=== PATIENT | female | born 1965 | race Hispanic/Latino ===

== ENCOUNTER 2022-01-11 17:51 | Emergency (ER) | payer OTHER ==
[~2022-01-11] VITALS: Ht 165.1 cm; Wt 72.6 kg
[2022-01-11 18:44] LABS: BASOPHILS % (AUTO) 0.3 % (0.0-5.0); EOSINOPHILS % (AUTO) 0.4 % (0.0-8.0); HEMATOCRIT 45.5 % (36-48); LYMPHOCYTES % (AUTO) 12.8 % (21.0-51.0); MEAN CORPUSCULAR HEMOGLOBIN 29.3 pg (27.0-33.0); MEAN CORPUSCULAR HGB CONC 34.9 g/dL (32.0-36.0); MEAN CORPUSCULAR VOLUME 83.9 fL (79-99); MONOCYTES % (AUTO) 4.4 % (3.0-13.0); NEUTROPHILS % (AUTO) 81.7 % (40.0-77.0); PLATELET COUNT (AUTO) 292 K/uL (130-400); RED BLOOD CELL COUNT(AUTO) 5.42 MIL/uL (4.00-5.50); RED CELL DISTRIBUTION WIDTH 12.3 % (11.0-15.5); WHITE BLOOD COUNT (AUTO) 11.1 K/uL (4.8-10.8)
[2022-01-11 19:05] LABS: CREATININE 0.5 mg/dL (0.5-1.5); POTASSIUM 3.6 mmol/L (3.5-5.1); TOTAL PROTEIN, SERUM 8.4 g/dL (6.0-8.3)
[2022-01-11 19:22] LABS: APPEARANCE,URINE CLEAR (CLEAR); BILIRUBIN,URINE NEGATIVE (NEGATIVE); COLOR,URINE LIGHT-YELLOW (YELLOW); GLUCOSE, URINE (UA) >=1000 mg/dL (NEGATIVE); KETONES,URINE 10 mg/dL (NEGATIVE); LEUKOCYTE ESTERASE ,URINE 250 Leu/uL (NEGATIVE); NITRATE,URINE NEGATIVE (NEGATIVE); OCCULT BLOOD,URINE NEGATIVE (NEGATIVE); PROTEIN,URINE 70 mg/dL (NEGATIVE); UROBILINOGEN,URINE 0.2 mg/dL (0.2-1.0)
[2022-01-11 19:25] LABS: BACTERIA,URINE RARE /HPF (None Seen); MUCUS,URINE RARE LPF (None Seen); SQUAMOUS EPITHELIAL CELL,UR RARE /HPF (0-2)
[2022-01-11] MEDS ORDERED: HYDRALAZINE 20MG/ML VIAL IV ONE (19:30)
[2022-01-11] MEDS ORDERED: ACETAMINOPHEN 325 MG TAB PO ONE (19:30)
[2022-01-11] MEDS ORDERED: LORAZEPAM 1 MG TABLET PO ONE (20:30)
[2022-01-11] MEDS ORDERED: MECL-262 PO (21:36)
[2022-01-11 21:40] VITALS: BP 141/78
== END 2022-01-11 21:48 | disposition home or self-care (01) ==
LOC: EDH 17:51
DX: R42 Dizziness and giddiness (principal); I10 Essential (primary) hypertension; F32.A Depression, unspecified; E11.9 Type 2 diabetes mellitus without complications; Z98.890 Other specified postprocedural states
CPT/HCPCS: 99284; 96374; 84484; 80053; 85025; 87088; 81001; 36415; 93005; J0360

== ENCOUNTER 2022-07-31 10:30 | Emergency (ER) | payer BC, OTHER ==
[~2022-07-31] VITALS: Ht 160 cm; Wt 65.8 kg
[~2022-07-31 10:30] MED LIST: MECL-262 PO
[2022-07-31 10:56] LABS: BASOPHILS % (AUTO) 0.1 % (0.0-5.0); EOSINOPHILS % (AUTO) 1.2 % (0.0-8.0); HEMATOCRIT 40.8 % (36-48); LYMPHOCYTES % (AUTO) 20.3 % (21.0-51.0); MEAN CORPUSCULAR HEMOGLOBIN 29.2 pg (27.0-33.0); MEAN CORPUSCULAR HGB CONC 34.3 g/dL (32.0-36.0); MONOCYTES % (AUTO) 5.1 % (3.0-13.0); PLATELET COUNT (AUTO) 308 K/uL (130-400); RED CELL DISTRIBUTION WIDTH 12.1 % (11.0-15.5); WHITE BLOOD COUNT (AUTO) 7.8 K/uL (4.8-10.8)
[2022-07-31] MEDS ORDERED: INSULIN HUMULIN R 100 UNIT/ML 3ML SQ ONE (11:00)
[2022-07-31 11:09] LABS: CREATININE 0.5 mg/dL (0.5-1.5); POTASSIUM 3.7 mmol/L (3.5-5.1)
[2022-07-31 11:15] LABS: ALBUMIN 3.2 g/dL (3.5-5.0)
[2022-07-31 11:56] LABS: INR 0.93 (0.85-1.15); PROTHROMBIN TIME 10.1 SEC (9.6-11.6)
[2022-07-31 12:00] VITALS: RESP 15
[2022-07-31] MEDS ORDERED: ASPIRIN 325MG TAB PO ONE (12:30)
[2022-07-31] MEDS ORDERED: INSULIN HUMULIN R 100 UNIT/ML 3ML IV ONE (12:30)
[2022-07-31] MEDS ORDERED: IOHEXOL 350 MG/ML 100ML INFUS..BTL IV ONE (14:58)
[2022-07-31] MEDS ORDERED: GLUCAGON 1MG KIT 1 MG ML IM PRN (15:00)
[2022-07-31] MEDS ORDERED: DEXTROSE 50%-WATER 50 ML DISP.SYRIN IV PRN (15:00)
[2022-07-31] MEDS ORDERED: ACETAMINOPHEN 500 MG TABLET PO PRN (15:00)
[2022-07-31] MEDS ORDERED: ONDANSETRON 4MG INJ IVP PRN (15:00)
[2022-07-31 15:11] LABS: HEMOGLOBIN A1C 11.6 % (4.0-6.0)
[2022-07-31 15:21] LABS: MAGNESIUM 1.5 mg/dL (1.80-2.40); THYROID STIMULATING HORMONE 0.37 uIU/mL (0.36-3.74)
[2022-07-31] MEDS ORDERED: MAGNESIUM 2GM PREMIX 50ML 50 ML IV SCH (15:30)
[2022-07-31] MEDS: 0.9%NACL 1000ML 1,000 ML IV SCH ×2 (15:46→23:22)
[2022-07-31] MEDS ORDERED: INSULIN HUMULIN R 100 UNIT/ML 3ML SQ SCH (16:30)
[2022-07-31] MEDS ORDERED: FAMOTIDINE 20MG TAB PO SCH (21:00)
[2022-07-31] MEDS ORDERED: ATORVASTATIN 40 MG TABLET PO SCH (21:00)
[2022-08-01 01:54] VITALS: BP 169/89; PULSE 83
[2022-08-01] MEDS ORDERED: ASPIRIN 81MG CHEW TAB PO SCH (09:00)
== END 2022-08-01 02:18 | disposition short-term general hospital (02) ==
LOC: EDH 10:30
DX: G45.9 Transient cerebral ischemic attack, unspecified (principal); E11.9 Type 2 diabetes mellitus without complications; I10 Essential (primary) hypertension; Z79.899 Other long term (current) drug therapy
CPT/HCPCS: 99285; 70496; 70551; 96374; 71045; 80061; 83036; 83735; 84484; 85610; 85730; 82948 ×3; 36415; 70498; 93005; 70450; 80050; J1815; Q9967; 80053; 84443; 85025

== ENCOUNTER 2024-09-06 12:40 | Emergency (ER) | payer BC ==
[~2024-09-06] VITALS: Ht 167.6 cm; Wt 74.8 kg
[2024-09-06 12:58] LABS: IMMATURE GRANULOCYTE ABSOLUTE 0.04 K/uL (0-1); NUCLEATED RED BLOOD CELLS 0.0 % (0.0-0.19); PLATELET COUNT (AUTO) 372 K/uL (130-400); RED BLOOD CELL COUNT(AUTO) 4.98 MIL/uL (4.00-5.50); RED CELL DISTRIBUTION WIDTH 12.7 % (11.0-15.5); WHITE BLOOD COUNT (AUTO) 9.0 K/uL (4.8-10.8)
--- NOTE | 2024-09-06 13:02 | EKG ---
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
[2024-09-06 13:08] LABS: INR 0.98 (0.85-1.15)
[2024-09-06 13:12] LABS: CREATININE 0.7 mg/dL (0.5-1.0); GLOMERULAR FILTR. RATE CALC 100.0 mL/min (>90); GLUCOSE,RANDOM 355.0 mg/dL (70-105); SODIUM SERUM 138.0 mmol/L (136-145); UREA NITROGEN, BLOOD 13.0 mg/dL (7-18)
[2024-09-06 13:17] LABS: CREATINE KINASE, TOTAL 31.0 U/L (21-232); LDL DIRECT 177.0 mg/dL (0-99)
--- NOTE | 2024-09-06 13:48 | HMCIMG ---
EXAM: CR Chest, 1 View. CLINICAL HISTORY: left side weakness COMPARISON: None provided. FINDINGS: LUNGS: There is no mass, infiltrate, or acute pulmonary abnormality. PLEURAL SPACES: No pleural effusion or pneumothorax. MEDIASTINUM: The cardiomediastinal silhouette is within normal limits. BONES: No aggressive appearing osseous lesion seen. IMPRESSION: No acute cardiopulmonary pathology is evident. /[place]
[2024-09-06 14:00] LABS: APPEARANCE,URINE CLEAR (CLEAR); GLUCOSE, URINE (UA) >=1000 mg/dL (NEGATIVE); LEUKOCYTE ESTERASE ,URINE NEGATIVE Leu/uL (NEGATIVE); NITRATE,URINE NEGATIVE (NEGATIVE); OCCULT BLOOD,URINE NEGATIVE (NEGATIVE)
[2024-09-06 14:05] LABS: ADD UA MICROSCOPIC YES
--- NOTE | 2024-09-06 14:06 | HMCIMG ---
EXAM: CT Head Without IV contrast. CLINICAL HISTORY: left sided weakness TECHNIQUE: Axial computed tomography images of the head/brain without intravenous contrast. COMPARISON: Study dated 07/31/22. FINDINGS: BRAIN: Age-related cerebral atrophy in the form of prominence of sulco-gyral spaces and dilatation of bilateral lateral ventricles. Bilateral periventricular hypodensities suggest small vessel ischemic disease. No evidence of acute hemorrhage. No mass lesion. No CT evidence for acute territorial infarct. No midline shift or extra-axial collections. ORBITS: The orbits are unremarkable. SINUSES AND MASTOIDS: The paranasal sinuses and mastoid air cells are clear. BONES: No fracture. SOFT TISSUES: Unremarkable. IMPRESSION: 1. No acute intracranial findings. /[place]
[2024-09-06 14:10] LABS: SQUAMOUS EPITHELIAL CELL,UR RARE /HPF (0-2)
--- NOTE | 2024-09-06 14:32 | ERN ---
General Chief Complaint: Eye Problems Stated Complaint: LEFT EYE Time Seen by MD: 12:43 Source: patient History of Present Illness Initial Comments Patient is a 58-year-old female coming in complaining of left eye weakness and right facial numbness. Per patient and family members these symptoms began yesterday. Patient has a history of a CVA years ago. Allergies: Coded Allergies: No Known Drug Allergies (Unverified Allergy, Unknown, 02/05/19) Home Meds Active Scripts Meclizine HCl (Antivert) 25 Mg Tab.chew, 25 MG PO TID, #60 TAB Prov:MICHELLE CAMPA MD 01/11/22 Past Medical History Past Medical History: CVA, Diabetes-Type II, Heart Disease, Hypertension Past Surgical History: None Social History Social History: Negative, Lives with family ROS Dictation CONSTITUTIONAL: No chills, no fever, no weakness, no diaphoresis, no malaise. HEAD/FACE: No signs of trauma. EENT: No eye pain, no blurred vision, no tearing, no double vision, no ear pain, no ear discharge, no nose pain, no nasal congestion, no throat pain, no throat swelling, no mouth pain. RESPIRATORY: No cough, no orthopnea, no SOB, no stridor, no wheezing. CARDIOVASCULAR: No chest pain, no edema, no palpitations, no syncope. GASTROINTESTINAL/ABDOMINAL: No abdominal pain, no constipation, no diarrhea, no nausea, no vomiting. GENITOURINARY: No abnormal discharge, no dysuria, no frequent urination, no hematuria. No complaints of pain in the genitals. MUSCULOSKELETAL: No back pain, no gout, no joint pain, no joint swelling, no muscle pain, no muscle stiffness, no neck pain. INTEGUMENTARY: No change in color, no change in hair/nails, no dryness, no lesion, no lumps, no rash. NEUROLOGICAL/PSYCH: No anxiety, not depressed, no emotional problem, no heada xiomara, no numbness, no pre-existing deficit, no history of seizures, no tremors, no weakness. HEMATOLOGIC/LYMPHATIC: Not anemic, no history of blood clots, no apparent bleeding, no bruising, glands not swollen. All Systems Negative, Except as Noted. Physical Exam Physical Exam Dictation VITAL SIGNS: Reviewed. GENERAL APPEARANCE: Alert, oriented x3, no acute distress, obese. HEAD AND FACE: Non-traumatic. EYES: PERRL, pink conjunctivas, left eyelid weakness, anterior chamber clear. EARS: Pinnas intact and no signs of trauma or erythema. Ear canals clear and no discharge. TMs no erythema. NOSE: No discharge, no bleeding. OROPHARYNX: Mouth normal, teeth no caries, tongue pink. Pharynx clear, no erythema. Tonsils no exudates, no abscesses noted. Mucous membrane moist. NECK: Supple, non-tender, no thyromegaly, no masses, no JVD, no bruits. BREAST: Deferred. CHEST: No tenderness, no crepitus, no paradoxical movement, no retractions. LUNGS: Clear, well-ventilated, symmetric, no rales, no wheezing, no rhonchi, no stridor, good breath sounds bilaterally. HEART: Regular rate, regular rhythm, no murmur, no gallops. VASCULAR: No peripheral edema. ABDOMEN: Soft, positive bowel sounds, nondistended, no guarding, nontender, no rebound, no masses no hepatomegaly, no splenomegaly, no Babcock's sign, no hernias. RECTAL: Deferred. GENITAL: Deferred. NEUROLOGICAL: Normal speech, gross motor function intact, gross sensory function intact. MUSCULOSKELETAL: Neck nontender, full range of motion, back nontender, full range of motion. EXTREMITIES: Nontender, full range of motion. SKIN: Color pink, dry, no turgor, no rash, no lacerations, no abrasions, no contusions. LYMPHATICS: Deferred. Results Laboratory and Microbiology Lab and Micro Result Laboratory Tests Test 09/06/24 12:54 09/06/24 13:41 White Blood Count 9.0 K/uL (4.8-10.8) Red Blood Count 4.98 MIL/uL (4.00-5.50) Hemoglobin 14.6 g/dL (12.0-16.0) Hematocrit 42.7 % (36-48) Mean Corpuscular Volume 85.7 fL (79-99) Mean Corpuscular Hemoglobin 29.3 pg (27.0-33.0) Mean Corpuscular Hemoglobin Concent 34.2 g/dL (32.0-36.0) Red Cell Distribution Width 12.7 % (11.0-15.5) Platelet Count 372 K/uL (130-400) Mean Platelet Volume 10.0 fL (7.5-10.5) Immature Granulocyte % (Auto) 0.4 % (0-1) Neutrophils (%) (Auto) 75.4 % (40.0-77.0) Lymphocytes (%) (Auto) 18.5 % (21.0-51.0) L Monocytes (%) (Auto) 4.6 % (3.0-13.0) Eosinophils (%) (Auto) 0.8 % (0.0-8.0) Basophils (%) (Auto) 0.3 % (0.0-5.0) Neutrophils # (Auto) 6.8 K/uL (1.8-7.7) Lymphocytes # (Auto) 1.7 K/uL (1.0-4.8) Monocytes # (Auto) 0.4 K/uL (0.1-1.0) Eosinophils # (Auto) 0.07 K/uL (0.00-0.70) Basophils # (Auto) 0.03 K/uL (0.00-0.20) Absolute Immature Granulocyte (auto 0.04 K/uL (0-1) Nucleated Red Blood Cells 0.0 % (0.0-0.19) Prothrombin Time 10.4 SEC (9.6-11.6) Prothromb Time International Ratio 0.98 (0.85-1.15) Activated Partial Thromboplast Time 27.6 SEC (26.3-35.5) Sodium Level 138 mmol/L (136-145) Potassium Level 4.1 mmol/L (3.5-5.1) Chloride Level 100 mmol/L (101-111) L Carbon Dioxide Level 34 mmol/L (21-32) H Blood Urea Nitrogen 13 mg/dL (7-18) Creatinine 0.7 mg/dL (0.5-1.0) Glomerular Filtration Rate Calc 100 mL/min (>90) Random Glucose 355 mg/dL (70-105) H Total Calcium 9.1 mg/dL (8.5-10.1) Total Creatine Kinase 31 U/L (21-232) # Troponin I High Sensitivity 10 ng/L (4-50) LDL Cholesterol 177 mg/dL (0-99) H Urine Color COLORLESS (YELLOW) Urine Appearance CLEAR (CLEAR) Urine pH 7.0 (5.0-8.0) Urine Specific [place] 1.018 (1.001-1.031) Urine Protein 50 mg/dL (NEGATIVE) H Urine Glucose (UA) >=1000 mg/dL (NEGATIVE) H Urine Ketones NEGATIVE mg/dL (NEGATIVE) Urine Occult Blood NEGATIVE (NEGATIVE) Urine Nitrate NEGATIVE (NEGATIVE) Urine Bilirubin NEGATIVE mg/dL (NEGATIVE) Urine Urobilinogen 0.2 mg/dL (0.2-1.0) Urine Leukocyte Esterase NEGATIVE Brit[place]/uL Urine RBC 0-1 /HPF (0-1) Urine WBC 0-1 /HPF (0-1) Urine Squamous Epithelial Cells RARE /HPF (0-2) Urine Bacteria None Seen /HPF (None Seen) Labs Reviewed?: Yes EKG/XRAY/US/CT/MRI EKG Comment 09/06/2024 time 12:58 p.m. Ventricular rate 90 Sinus rhythm [place] [address] wave elevation or depression X-RAY Comment [address] [address] IMAGING REPORT Signed PATIENT: CASANDRA LORA MR#: [id number] : 1965 SEX: F AGE: 58 LOCATION: [facility] ORDER [id number] STATUS: [facility] REPORT#: [id number] SERVICE 1243 REASON: left side weakness ORDERING PHYSICIAN: NATHANIEL MARTINEZ MD PROCEDURE: CXR1VW - CHEST 1VW EXAM: CR Chest, 1 View. CLINICAL HISTORY: left side weakness COMPARISON: None provided. FINDINGS: LUNGS: There is no mass, infiltrate, or acute pulmonary abnormality. PLEURAL SPACES: No pleural effusion or pneumothorax. MEDIASTINUM: The cardiomediastinal silhouette is within normal limits. BONES: No aggressive appearing osseous lesion seen. IMPRESSION: No acute cardiopulmonary pathology is evident. /[place] DICTATED BY: JOSEFINA HARPER Jr., MD DATE: 09/06/241446 ELECTRONICALLY SIGNED BY: JOSEFINA HARPER Jr., MD DATE: 09/06/241446 CT Scan Comment IMAGING REPORT Signed PATIENT: CASANDRA LORA MR#: [id number] : 1965 SEX: F AGE: 58 LOCATION: [facility] ORDER [id number] STATUS: REG ER REPORT#: [id number] SERVICE 1243 REASON: left sided weakness ORDERING PHYSICIAN: NATHANIEL MARTINEZ MD PROCEDURE: HEAD WO - CT HEAD/BRAIN W/O CONTRAST EXAM: CT Head Without IV contrast. CLINICAL HISTORY: left sided weakness TECHNIQUE: Axial computed tomography images of the head/brain without intravenous contrast. COMPARISON: Study dated 07/31/22. FINDINGS: BRAIN: Age-related cerebral atrophy in the form of prominence of sulco-gyral spaces and dilatation of bilateral lateral ventricles. Bilateral periventricular hypodensities suggest small vessel ischemic disease. No evidence of acute hemorrhage. No mass lesion. No CT evidence for acute territorial infarct. No midline shift or extra-axial collections. ORBITS: The orbits are unremarkable. SINUSES AND MASTOIDS: The paranasal sinuses and mastoid air cells are clear. BONES: No fracture. SOFT TISSUES: Unremarkable. IMPRESSION: 1. No acute intracranial findings. /[place] DICTATED BY: ESTER FRITZ MD DATE: 09/06/241504 ELECTRONICALLY SIGNED BY: ESTER FRITZ MD DATE: 09/06/24 150 [address] [id number] IMAGING REPORT Signed PATIENT: CASANDRA LORA MR#: [id number] : 1965 SEX: F AGE: 58 LOCATION: ED ORDER [id number] STATUS: REG ER REPORT#: [id number] SERVICE 143 REASON: facial weakness numbness ORDERING PHYSICIAN: NATHANIEL MARTINEZ MD PROCEDURE: CTA HEDNEC - CT ANGIO HEAD AND NECK EXAM: CTA Head and Neck with and without Intravenous Contrast. CLINICAL HISTORY: facial weakness numbness TECHNIQUE: Axial CTA images of the head and neck performed with and without intravenous contrast in the arterial phase. Coronal and sagittal reformatted images were generated and reviewed. 3-D reformatted images generated on an independent workstation were also reviewed. NASCET criteria were used in assessment of stenosis. CONTRAST: Contrast injected without incident. COMPARISON: Study dated 07/31/22. FINDINGS: VASCULATURE:NECK: COMMON CAROTID ARTERIES No significant stenosis. No dissection or occlusion. EXTERNAL CAROTID ARTERIES Patent. INTERNAL CAROTID ARTERIES Atherosclerotic wall calcification of the petrous segment of the right internal carotid artery without significant luminal compromise. Atherosclerotic wall calcification of the left carotid bulb and left origin of the internal carotid artery without significant luminal compromise. No stenosis by NASCET criteria. No dissection or occlusion. VERTEBRAL ARTERIES Mild irregular luminal narrowing of the V4 segment of the left vertebral artery. No significant stenosis. No dissection or occlusion. HEAD: ANTERIOR CEREBRAL ARTERIES No significant stenosis. No occlusion. No aneurysm. MIDDLE CEREBRAL ARTERIES No significant stenosis. No occlusion. No aneurysm. POSTERIOR CEREBRAL ARTERIES No significant stenosis. No occlusion. No aneurysm. BASILAR ARTERY No significant stenosis. No occlusion. No aneurysm. OTHER: SOFT TISSUES No acute finding. BONES No acute osseous abnormality. IMPRESSION: 1. No acute intracranial or cervical vascular findings. 2. Mild irregular luminal narrowing of the V4 segment of the left vertebral artery. /[place] DICTATED BY: ESTER FRITZ MD DATE: 09/06/241714 ELECTRONICALLY SIGNED BY: ESTER FRITZ MD DATE: 09/06/241714 [facility] MDM: Differential diagnosis: CVA, TIA, left-sided weakness, hyperglycemia, Rationale: Tests considered and ordered secondary to shared decision making include: labs, ECG and radiology Previous outside records reviewed: Old ER visits. Risk of complication and/or morbidity or mortality of patient management: None Medications-Per medication reconciliation Need for hospitalization: Patient does meet criteria for hospitalization. Need for emergency major/minor surgery: No There are no social concerns with this patient. Prescription drug management Prescriptions will include symptomatic care Patient's prior external medical records from other ER visits were reviewed by me as indicated. Prior testing and results from previous visits were reviewed. Prior tests were taken into account with medical decision making and resource utilization, independent historian/historians were used to obtain complete medic al history. I independently interpreted the test that were performed, results were reviewed by me and considered findings on radiology if ordered. Medical management and examination interpretation discussions were had by me with other qualified healthcare professionals as indicated for the patient's care. ED Course Orders Procedure Category Date Status Time Cbc With Differential LAB 09/06/24 Complete 12:43 Prothrombin Time With LAB 09/06/24 Complete INR 12:43 Partial LAB 09/06/24 Complete Thromboplastin Time 12:43 Ct Head/Brain W/O CT 09/06/24 Resulted Contrast 12:43 Chest 1vw RAD 09/06/24 Resulted 12:43 12 Lead Ekg Tracing- EKG 09/06/24 Complete Technical 12:43 Creatine Kinase, Total LAB 09/06/24 Complete 12:43 Ldl Direct LAB 09/06/24 Complete 12:43 Troponin I High LAB 09/06/24 Complete Sensitivity 12:43 Urinalysis Profile LAB 09/06/24 Complete 12:43 Bedside Glucose CPOE 09/06/24 Transmitted Fingerstick 12:43 Basic Metabolic Panel LAB 09/06/24 Complete 12:43 0.9%Nacl 1000ml (Ns PHA 09/06/24 Complete 1000ml) 14:30 Insulin Regular, PHA 09/06/24 Complete Human 3ml (Humulin R 14:30 Ct Angio Head And Neck CT 09/06/24 Resulted 14:34 Clonidine Hcl 0.2 Mg PHA 09/06/24 In Process Tablet (Catapres 0. 15:30 Clonidine Hcl 0.2 Mg PHA 09/06/24 Complete Tablet (Catapres 0. 15:04 Iohexol (Omnipaque) PHA 09/06/24 Complete 15:05 Current Medications Medications (Trade) Dose Ordered Sig/Tamera Route PRN Reason Start Time Stop Time Status Last Admin Dose Admin Clonidine HCl (CATApres 0.2 MG TAB) 0.2 mg ONCE PO 09/06/24 15:30 09/06/24 19:30 Clonidine HCl (CATApres 0.2 MG TAB) 0.2 mg STK-MED ONCE PO 09/06/24 15:04 09/06/24 15:05 DC 09/06/24 15:07 Insulin Human Regular (humuLIN R 100 UNIT/ML 3ML) 5 unit ONCE ONCE IV 09/06/24 14:30 09/06/24 14:31 DC 09/06/24 14:39 Iohexol (Omnipaque) 75 ml STK-MED ONCE IV 09/06/24 15:05 09/06/24 15:06 DC Sodium Chloride 1,000 ml @ 0 mls/hr ONCE ONCE IV 09/06/24 14:30 09/06/24 14:31 DC 09/06/24 14:39 Vital Signs Date Time Temp Pulse Resp B/P (MAP) Pulse Ox O2 Delivery O2 Flow Rate FiO2 09/06/24 16:23 98.2 69 18 152/72 98 Room Air* 0 21 09/06/24 15:07 87 201/87 09/06/24 14:58 87 20 201/87 100 Room Air* 0 21 09/06/24 13:40 83 18 161/88 99 Room Air* 0 09/06/24 12:45 98.1 91 18 127/100 100 Room Air* 0 21 09/06/24 12:42 98.1 91 18 127/100 100 Room Air 0 Critical Care Note Comments Critical Care Procedure Note Authorized and Performed by: me Total critical care time: Approximately 36 minutes Due to a high probability of clinically significant, life threatening deterioration, the patient required my highest level of preparedness to intervene emergently and I personally spent this critical care time directly and personally managing the patient. This critical care time included obtaining a history; examining the patient; pulse oximetry; ordering and review of studies; arranging urgent treatment with development of a management plan; evaluation of patient's response to treatment; frequent reassessment; and, discussions with other providers. This critical care time was performed to assess and manage the high probability of imminent, life-threatening deterioration that could result in multi-organ failure. It was exclusive of separately billable procedures and treating other patients and teaching time. Please see MDM section and the rest of the note for further information on patient assessment and treatment. DX & DISP Disposition: Transfer Decision to Admit Time: 17:56 Departure Impression: Primary Impression: TIA (transient ischemic attack) Condition: Stable Referrals: SELF,REFERRAL (PCP) NATHANIEL MARTINEZ MD Sep 06, 2024 14:32
[2024-09-06] MEDS: 0.9%NACL 1000ML 1,000 ML IV ONE (14:39)
[2024-09-06] MEDS ORDERED: IOHEXOL-350 75 ML VIAL IV ONE (15:05)
--- NOTE | 2024-09-06 15:28 | NUR ---
PASSED BEDSIDE SWALLOW TEST
--- NOTE | 2024-09-06 16:16 | HMCIMG ---
EXAM: CTA Head and Neck with and without Intravenous Contrast. CLINICAL HISTORY: facial weakness numbness TECHNIQUE: Axial CTA images of the head and neck performed with and without intravenous contrast in the arterial phase. Coronal and sagittal reformatted images were generated and reviewed. 3-D reformatted images generated on an independent workstation were also reviewed. NASCET criteria were used in assessment of stenosis. CONTRAST: Contrast injected without incident. COMPARISON: Study dated 07/31/22. FINDINGS: VASCULATURE:NECK: COMMON CAROTID ARTERIES No significant stenosis. No dissection or occlusion. EXTERNAL CAROTID ARTERIES Patent. INTERNAL CAROTID ARTERIES Atherosclerotic wall calcification of the petrous segment of the right internal carotid artery without significant luminal compromise. Atherosclerotic wall calcification of the left carotid bulb and left origin of the internal carotid artery without significant luminal compromise. No stenosis by NASCET criteria. No dissection or occlusion. VERTEBRAL ARTERIES Mild irregular luminal narrowing of the V4 segment of the left vertebral artery. No significant stenosis. No dissection or occlusion. HEAD: ANTERIOR CEREBRAL ARTERIES No significant stenosis. No occlusion. No aneurysm. MIDDLE CEREBRAL ARTERIES No significant stenosis. No occlusion. No aneurysm. POSTERIOR CEREBRAL ARTERIES No significant stenosis. No occlusion. No aneurysm. BASILAR ARTERY No significant stenosis. No occlusion. No aneurysm. OTHER: SOFT TISSUES No acute finding. BONES No acute osseous abnormality. IMPRESSION: 1. No acute intracranial or cervical vascular findings. 2. Mild irregular luminal narrowing of the V4 segment of the left vertebral artery. /[place]
--- NOTE | 2024-09-06 16:40 | NUR ---
TRANSFER REQUEST TO [facility] [place] BY DR MARTINEZ. ANNA KELLY
--- NOTE | 2024-09-06 16:50 | NUR ---
TRANSFER MET WITH PT AND SPOUSE INFORM OF TRANSFER PROCESS BOTH VERBALIZED UNDERSTANDING AND CONSENT SIGN FOR TRANSFER . ANNA KELLY
--- NOTE | 2024-09-06 17:14 | NUR ---
TRANSFER CALL PLACED TO [facility] [place] TRAN[facility] [phone] SPOKE WITH COLLEEN INFORMATION PROVIDED WILL CALL BACK. ANNA KELLY
--- NOTE | 2024-09-06 17:22 | BSKYNEURO ---
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 # Scores Time of exam and NIHSS (Central Time): 09/06/2024 17:08 Level of Consciousness 1a: [0] = Alert; keenly responsive LOC Questions 1b: [0] = Answers both questions correctly LOC Commands 1c: [0] = Performs both tasks correctly Best Gaze 2: [0] = Normal Visual 3: [0] = No visual loss Facial Palsy 4: [3] = Complete paralysis Motor Arm Left 5a: [0] = No drift Motor Arm Right 5b: [0] = No drift Motor Leg Left 6a: [0] = No drift Motor Leg Right 6b: [0] = No drift Limb Ataxia 7: [0] = Absent Sensory 8: [0] = Normal Best Language 9: [0] = No aphasia Dysarthria 10: [0] = Normal Extinction and Inattention 11: [0] = No abnormality NIHSS Total: 3 # Exam Cranial Nerves: - extra ocular movements intact Motor: - normal strength # Assessment Impression: - [place] Palsy # Plan Thrombolytic/Intervention: NOT IV Thrombolysis or IA Intervention candidate Thrombolytic/Intraarterial Exclusion: - IV thrombolytic and IA intervention considered but not recommended as this patient's symptoms are not clinically consistent with an assumed diagnosis of stroke Imaging: (urgency: STAT): - CT Head without contrast Medication: Prednisone 60mg Daily x 7 days Valacyclovir 1000mg TID x 7 days Other: - If patient has any neurological deterioration please call me back immediately - I have discussed my recommendations with the referring provider Additional Recommendations: eye patch for affected eye QHS to avoid corneal abrasions. # Logistics Attestation of consult completion: The patient is located at: [facility]. Facility staff participated in the visit. I performed this telemedicine visit from my offsite office utilizing interactive 2 way audio and visual telecommunication technology. Total time spent in telemedicine encounter: I spent 21 minutes reviewing clinical data and/or imaging, obtaining history, examining the patient, communicating with the onsite care team, and in preparation of this report. # Demographics First Name: NEETU Ovalle Last Name: GUIDO Facility: [facility] Electronically signed at 09/06/2024 17:17 (Central Time) by Jamaal Adamson MD Neuro Consult Order placed for: Yes RICH ADAMSON MD Sep 06, 2024 17:22
--- NOTE | 2024-09-06 17:56 | CONS ---
CONSULT NOTE: [facility] Note # Demographics Consult Type: General Neurology Patient Location: Emergency Room First Name: CASANDRA Last Name: GUIDO Date of : 1965 Age: 58 Gender: Female Facility: [facility] Time of Initial Page (Central Time): 09/06/2024 14:19 Time of Return Call (Central Time): 09/06/2024 14:19 # HPI History: 58yof with prev stroke (mild L sided residual weakness) who p/w L ptosis, R hemibody numbness. Last Known Normal: - I have collected independent history specific to time last normal or last known well. We have collaborated with the provider and at this time, we have the most current timeline with the information that is available. # Scores Time of exam and NIHSS (Central Time): 09/06/2024 14:28 Level of Consciousness 1a: [0] = Alert; keenly responsive LOC Questions 1b: [1] = Answers one correctly LOC Commands 1c: [0] = Performs both tasks correctly Best Gaze 2: [0] = Normal Visual 3: [0] = No visual loss Facial Palsy 4: [1] = Minor paralysis Motor Arm Left 5a: [0] = No drift Motor Arm Right 5b: [0] = No drift Motor Leg Left 6a: [0] = No drift Motor Leg Right 6b: [0] = No drift Limb Ataxia 7: [0] = Absent Sensory 8: [1] = Ditp-bw-vwnupxsv sensory loss Best Language 9: [0] = No aphasia Dysarthria 10: [0] = Normal Extinction and Inattention 11: [0] = No abnormality NIHSS Total: 3 # Data Head CT: - no bleed - per radiologist read # Plan Thrombolytic/Intervention: NOT IV Thrombolysis or IA Intervention candidate Thrombolytic Exclusion: > 4.5 hours Intraarterial Exclusion: - clinical exam not consistent with presence of large vessel occlusion (LVO), can reconsider if LVO found on vascular imaging Imaging: (urgency: STAT): - CT Angiogram Head and CT Angiogram Neck AND call back with results if abnormal Imaging: (urgency: routine): - MRI Brain without contrast Other: - If patient has any neurological deterioration please call me back immediately - would not pursue stroke work-up if MRI is negative # Logistics Attestation of consult completion: The patient is located at: [facility]. Facility staff participated in the visit. I performed this telemedicine visit from my offsite office utilizing interactive 2 way audio and visual telecommunication technology. Total time spent in telemedicine encounter: I spent 23 minutes reviewing clinical data and/or imaging, obtaining history, examining the patient, communicating with the onsite care team, and in preparation of this report. # Demographics First Name: CASANDRA Last Name: GUIDO Facility: [facility] BRANDON GRANT MD Sep 06, 2024 17:56
--- NOTE | 2024-09-06 18:05 | NUR ---
TRANSFER INTAKE NURSE CASANDRA CALL BACK WITH ACCEPTANCE UNDER DR RALF STERN TO ROOM [id number] AND PRIMARY NURSE TO CALL REPORT TO [phone] AND EMS WHEN READY. ANNA KELLY
[2024-09-06 19:37] VITALS: BP 176/79; PULSE 71; RESP 17; TEMP 97.5; O2SAT 100
--- NOTE | 2024-09-06 19:48 | NUR ---
REPORT GIVEN TO [facility] AT BEDSIDE, ALL QUESTIONS ANSWERED AT THIS TIME. NO SIGNS OF ACUTE DISTRESS NOTED, PER ER MD, PERMISIVE HTN 170s PERMITTED, DENIES PAIN, ALL BELONGINGS SENT WITH PATIENT AT TIME OF DEPARTURE.
== END 2024-09-06 19:51 | disposition short-term general hospital (02) ==
LOC: EDH 12:40
DX: G45.9 Transient cerebral ischemic attack, unspecified (principal); E11.9 Type 2 diabetes mellitus without complications; I11.9 Hypertensive heart disease without heart failure
CPT/HCPCS: 99291; 70496; 96374; 71045; 82550; 83721; 84484; 80048; 85025; 85610; 85730; 81001; 36415; 70498; 93005; 70450; J1815; J7030; Q9967

== ENCOUNTER 2024-11-03 17:21 | Emergency (ER) | payer BC ==
[~2024-11-03] VITALS: Ht 165.1 cm; Wt 72.6 kg
[2024-11-03 17:59] LABS: IMMATURE GRANULOCYTE ABSOLUTE 0.04 K/uL (0-1); NUCLEATED RED BLOOD CELLS 0.0 % (0.0-0.19); PLATELET COUNT (AUTO) 368 K/uL (130-400); RED BLOOD CELL COUNT(AUTO) 4.77 MIL/uL (4.00-5.50); RED CELL DISTRIBUTION WIDTH 12.6 % (11.0-15.5); WHITE BLOOD COUNT (AUTO) 12.4 K/uL (4.8-10.8)
[2024-11-03 18:05] LABS: CREATININE 0.6 mg/dL (0.5-1.0); GLOMERULAR FILTR. RATE CALC 104.0 mL/min (>90); GLUCOSE,RANDOM 162.0 mg/dL (70-105); SODIUM SERUM 134.0 mmol/L (136-145); UREA NITROGEN, BLOOD 12.0 mg/dL (7-18)
[2024-11-03 18:16] LABS: CREATINE KINASE, TOTAL 44.0 U/L (21-232)
--- NOTE | 2024-11-03 18:59 | ERN ---
ED Note History of Present Illness Stated Complaint: ELEVATED BP Chief Complaint: Hypertension Time Seen by MD: 17:39 Dictation: 58-YEAR-OLD FEMALE PRESENTS ER WITH AND . SOME PATIENT HAS MILD DEMENTIA SO HE WILL BE A HISTORIAN. STATES BLOOD PRESSURE NURSE CALLED HIM TODAY TOLD HIM PATIENT NEEDED TO COME THE ER TO GET EVALUATED BECAUSE BLOOD PRESSURE WAS 199/100. PATIENT IS ASYMPTOMATIC PATIENT DENIES ANY COMPLAINT Allergies: Coded Allergies: No Known Drug Allergies (Unverified Allergy, Unknown, 02/05/19) Home Meds Active Scripts Meclizine HCl (Antivert) 25 Mg Tab.chew, 25 MG PO TID, #60 TAB Prov:MICHELLE CAMPA MD 01/11/22 Past Medical History Past Medical History: CVA, Dementia, Diabetes-Type II, Heart Disease, Hypertension, Stroke Surgical History: None Social History: Negative, Lives with family Review of System Dictation CONSTITUTIONAL: NEGATIVE FOR FEVER,CHILLS, AND WEIGHT LOSS EYES: NEGATIVE FOR INJURY, PAIN,REDNESS, AND DISCHARGE ENT: NEGATIVE FOR INJURY,PAIN OR SWELLING CARDIOVASCULAR: NEGATIVE FOR CHEST PAIN, PALPITATIONS, AND EDEMA RESPIRATORY: NEGATIVE FOR SHORTNESS OF BREATH, COUGH, WHEEZING, AND PLEURITIC CHEST PAIN ABDOMEN/GI: NEGATIVE FOR ABDOMINAL PAIN, NAUSEA, VOMITING, DIARRHEA, AND CONSTIPATION BACK: NEGATIVE FOR INJURY AND PAIN : NEGATIVE FOR INJURY, BLEEDING AND DISCHARGE MS/EXTREMITY: NEGATIVE FOR INJURY AND DEFORMITY SKIN: NEGATIVE FOR RASH, AND DISCOLORATION NEURO: NEGATIVE FOR HEADACHE, WEAKNESS, NUMBNESS, TINGLING, AND SEIZURE PSYCH: NEGATIVE FOR SUICIDE IDEATION, HOMICIDAL IDEATION, AND HALLUCINATIONS ALLERGY/IMMUNOLOGY: NEGATIVE FOR HIVES, RASH, AND ALLERGIES ALL SYSTEMS NEGATIVE, EXCEPT NOTED ABOVE. Initial Vital Sign VS Vital Signs Date Time Temp Pulse Resp B/P (MAP) Pulse Ox O2 Delivery O2 Flow Rate FiO2 11/03/24 17:24 98.4 56 16 193/88 100 Room Air 0 11/03/24 19:20 21 Physical Exam Dictation GENERAL: AWAKE, ALERT, NAD HEAD/FACE: NORMOCEPHALIC, ATRAUMATIC EYES: PERRL, EOMI, VISION AT BASELINE ENT: ORAL CAVITY CLEAR, TMS CLEAR, NO SIGNS OF INFECTION NECK: TRACHEA MIDLINE, SUPPLE, NO NUCHAL RIGIDITY CARDIOVASCULAR: RRR, NORMAL S1/S2, NO MRGS, NO JVD RESPIRATORY: CTAB, NO RESPIRATORY DISTRESS, NO RALES OR WHEEZES ABDOMEN: SOFT, NON-TENDER, NON-DISTENDED, NORMAL BOWEL SOUNDS, NO GUARDING OR REBOUND. SKIN: WARM, DRY, NORMAL TURGOR, NO RASH MS/EXTREMITY: PULSES EQUAL, NO CYANOSIS, NEUROVASCULAR INTACT, FROM NEURO: COAX4, GCS 15, STRENGTH 5/5, CN 2-12 INTACT, NORMAL CEREBELLAR EXAM, NORMAL GAIT, PSYCH: NORMAL BEHAVIOR, MOOD, AND AFFECT NORMAL Results (Laboratory/Radiology) Laboratory/Radiology Laboratory Tests Test 11/03/24 17:52 White Blood Count 12.4 K/uL (4.8-10.8) H Red Blood Count 4.77 MIL/uL (4.00-5.50) Hemoglobin 14.0 g/dL (12.0-16.0) Hematocrit 40.8 % (36-48) Mean Corpuscular Volume 85.5 fL (79-99) Mean Corpuscular Hemoglobin 29.4 pg (27.0-33.0) Mean Corpuscular Hemoglobin Concent 34.3 g/dL (32.0-36.0) Red Cell Distribution Width 12.6 % (11.0-15.5) Platelet Count 368 K/uL (130-400) Mean Platelet Volume 9.7 fL (7.5-10.5) Immature Granulocyte % (Auto) 0.3 % (0-1) Neutrophils (%) (Auto) 77.6 % (40.0-77.0) H Lymphocytes (%) (Auto) 15.8 % (21.0-51.0) L Monocytes (%) (Auto) 5.1 % (3.0-13.0) Eosinophils (%) (Auto) 0.9 % (0.0-8.0) Basophils (%) (Auto) 0.3 % (0.0-5.0) Neutrophils # (Auto) 9.6 K/uL (1.8-7.7) H Lymphocytes # (Auto) 2.0 K/uL (1.0-4.8) Monocytes # (Auto) 0.6 K/uL (0.1-1.0) Eosinophils # (Auto) 0.11 K/uL (0.00-0.70) Basophils # (Auto) 0.04 K/uL (0.00-0.20) Absolute Immature Granulocyte (auto 0.04 K/uL (0-1) Nucleated Red Blood Cells 0.0 % (0.0-0.19) Sodium Level 134 mmol/L (136-145) L Potassium Level 3.5 mmol/L (3.5-5.1) Chloride Level 96 mmol/L (101-111) L Carbon Dioxide Level 32 mmol/L (21-32) Blood Urea Nitrogen 12 mg/dL (7-18) Creatinine 0.6 mg/dL (0.5-1.0) Glomerular Filtration Rate Calc 104 mL/min (>90) Random Glucose 162 mg/dL (70-105) H Total Calcium 9.5 mg/dL (8.5-10.1) Total Creatine Kinase 44 U/L (21-232) # Troponin I High Sensitivity 10 ng/L (4-50) ED Course ED Course Orders Procedure Category Date Status Time Cbc With Differential LAB 11/03/24 Complete 17:37 Chest 1vw RAD 11/03/24 Resulted 17:37 12 Lead Ekg Tracing- EKG 11/03/24 Logged Technical 17:37 Creatine Kinase, Total LAB 11/03/24 Complete 17:37 Troponin I High LAB 11/03/24 Complete Sensitivity 17:37 Basic Metabolic Panel LAB 11/03/24 Complete 17:37 12 Lead Ekg Tracing- EKG 11/03/24 Logged Technical 17:37 Vital Signs Q1h CPOE 11/03/24 Transmitted 18:42 Clonidine Hcl 0.1 Mg PHA 11/03/24 Complete Tablet (Catapres 0. 20:00 Current Medications Medications (Trade) Dose Ordered Sig/Tamera Route PRN Reason Start Time Stop Time Status Last Admin Dose Admin Clonidine HCl (CATApres 0.1 mg TAB) 0.1 mg ONCE ONCE PO 11/03/24 20:00 11/03/24 20:01 DC 11/03/24 20:05 Vital Signs Date Time Temp Pulse Resp B/P (MAP) Pulse Ox O2 Delivery O2 Flow Rate FiO2 11/03/24 20:05 76 198/98 11/03/24 19:20 75 18 198/98 98 Room Air* 0 21 11/03/24 17:24 98.4 56 16 193/88 100 Room Air 0 Medical Decision Making MDM MDM: DIFFERENTIAL DIAGNOSIS: HTN CRISIS, HEADACHE, STRESS, ANXIETY RATIONALE: TESTS CONSIDERED AND ORDERED SECONDARY TO SHARED DECISION MAKING INCLUDE: LABS, ECG AND RADIOLOGY PREVIOUS OUTSIDE RECORDS REVIEWED: OLD ER VISITS. RISK OF COMPLICATION AND/OR MORBIDITY OR MORTALITY OF PATIENT MANAGEMENT: NONE MEDICATIONS-PER MEDICATION RECONCILIATION NEED FOR HOSPITALIZATION: PATIENT DOES NOT MEET CRITERIA FOR HOSPITALIZATION. NEED FOR EMERGENCY MAJOR/MINOR SURGERY: NO THERE ARE NO SOCIAL CONCERNS WITH THIS PATIENT. PRESCRIPTION DRUG MANAGEMENT PRESCRIPTIONS WILL INCLUDE SYMPTOMATIC CARE PATIENT'S PRIOR EXTERNAL MEDICAL RECORDS FROM OTHER ER VISITS WERE REVIEWED BY ME INDICATED. PRIOR TESTING AND RESULTS FROM PREVIOUS VISITS WERE REVIEWED. PRIOR TESTS WERE TAKEN INTO ACCOUNT WITH MEDICAL DECISION MAKING AND RESOURCE UTILIZATION, INDEPENDENT HISTORIAN/HISTORIANS WERE USED TO OBTAIN COMPLETE MEDICAL HISTORY. I INDEPENDENTLY INTERPRETED THE TEST THAT WERE PERFORMED, RESULTS WERE REVIEWED BY ME AND CONSIDERED FINDINGS ON RADIOLOGY IF ORDERED.. PATIENT STATES SHE RUNS 140S 150S SYSTOLIC PATIENT NAD, NONTOXIC, STABLE FOR DISCHARGE. PT GIVEN DISCHARGE INSTRUCTIONS IN LAYMAN TERMS AND UNDERSTOOD, ALL QUESTIONS ANSWERED. PT WILL FOLLOW UP WITH PCP AND RETURN TO THE ER IF WORSE. DX & DISP Disposition: Discharge Departure Impression: Primary Impression: Hypertension Condition: Stable Additional Instructions: FOLLOW UP WITH YOUR DOCTOR FOR BETTER BLOOD PRESSURE CONTROL. FOLLOW-UP WITH YOUR PCP IN 24-72 HOURS AND IN THE EVENT IF SYMPTOMS WORSEN OR AN EMERGENCY OVERNIGHT REPORT TO THE ED IMMEDIATELY Referrals: SELF,REFERRAL (PCP) RUDI FELIPE NP Nov 03, 2024 18:59
--- NOTE | 2024-11-03 19:03 | HMCIMG ---
EXAM: XR Chest, 1 View. CLINICAL HISTORY: 58 year old female with palpitations. COMPARISON: XR Chest dated 09/06/24. FINDINGS: LUNGS: No evidence of lung disease. PLEURAL SPACES: No pleural effusion or pneumothorax. HEART: The heart size is normal. BONES: No acute osseous abnormality. IMPRESSION: 1. No acute findings. /[place]
[2024-11-03 20:47] VITALS: BP 158/81; PULSE 80; RESP 18; TEMP 98.3; O2SAT 98
--- NOTE | 2024-11-03 21:11 | EKG ---
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
== END 2024-11-03 20:53 | disposition home or self-care (01) ==
LOC: EDH 17:21
DX: I11.9 Hypertensive heart disease without heart failure (principal); E11.9 Type 2 diabetes mellitus without complications; F03.90 Unspecified dementia, unspecified severity, without behavioral disturbance, psychotic disturbance, mood disturbance, and anxiety; Z86.73 Personal history of transient ischemic attack (TIA), and cerebral infarction without residual deficits
CPT/HCPCS: 36415; 71045; 80048; 82550; 84484; 85025; 93005; 99284